=== PATIENT | male | born 1995 | race Two or more races ===

== ENCOUNTER 2019-05-14 19:24 | Emergency (ER) | payer SELFPAY ==
[~2019-05-14] VITALS: Ht 177.8 cm; Wt 92.0 kg
[2019-05-14] MEDS ORDERED: KETOROLAC 30MG/ML VIAL IV STA (21:04)
[2019-05-14] MEDS ORDERED: VISCOUS LIDOCAINE 2% 15 ML UDC PO STA (21:04)
[2019-05-14] MEDS ORDERED: MAGNESIUM/ALUMINUM HYDROXIDE/SIMETHICONE 30ML UDC PO STA (21:04)
[2019-05-14 21:49] VITALS: BP 140/85
== END 2019-05-14 21:50 | disposition home or self-care (01) ==
LOC: ER 19:24
DX: J06.9 Acute upper respiratory infection, unspecified (principal)
CPT/HCPCS: 96374; 99283; J1885

== ENCOUNTER 2022-11-01 19:23 | Emergency (ER) | payer SELFPAY ==
[~2022-11-01] VITALS: Ht 177.8 cm; Wt 99.0 kg
[2022-11-01 19:55] VITALS: BP 135/85; O2SAT 98
[2022-11-02] MEDS ORDERED: OFLO5DRO4 RIGHT EAR (00:34)
[2022-11-02 00:53] VITALS: PULSE 84; RESP 16; TEMP 99.1
== END 2022-11-02 00:50 | disposition home or self-care (01) ==
LOC: ER 19:23
DX: H60.91 Unspecified otitis externa, right ear (principal); Z90.49 Acquired absence of other specified parts of digestive tract
CPT/HCPCS: 99283